=== PATIENT | female | born 1950 | race Caucasian/White ===

== ENCOUNTER 2016-07-09 09:14 | Emergency (ER) | payer BC ==
--- NOTE | 2016-07-09 10:07 | RAD ---
INDICATION: Post RIGHT knee meniscus repair April 22, 2016. RIGHT calf swelling and tightness. COMPARISON: None. TECHNIQUE: English scale, color Doppler, and spectral analysis of the deep veins of the RIGHT lower extremity. Vessel compression, phasicity, and augmentation assessed. REPORT: The RIGHT common femoral, great saphenous, profunda femoral, femoral, and popliteal veins are patent. While assessment of the calf posterior tibial and peroneal veins is limited due to soft tissue edema they appear grossly patent. Patency of the contralateral common femoral vein documented. IMPRESSION: No evidence for RIGHT lower extremity deep venous thrombosis.
[2016-07-09 11:05] VITALS: BP 182/112
[2016-07-09 19:34] LABS: BUN/Creatinine Ratio 24.7 (8-20); Calcium 9.7 mg/dL (8.6-10.3); EGFR African American 95.9 (>60); EGFR Non-African American 74.5 (>60); Potassium 3.5 mmol/L (3.5-5.0)
--- NOTE | 2016-08-02 07:34 | UC ---
Saturnino Torres Adam, scribed for Mattie Zamora DO on 07/09/16 at 0923 . Lower Extremity/Ankle HPI - HPI Summary HPI Summary: Pt is a 66 year old female presenting with right calf swelling after a recent surgery. She had arthroscopic knee surgery on 04/22 and has had no complications until now. She states that she suddenly began to have swelling and soreness in her right calf on 07/04. She had been sitting down and when she stood up she thought she had a cramp but the pain has not gone away. The pain is aggravated by standing, bending, and ambulating. This morning the pain suddenly grew worse after she heard a crack in her right leg while she was walking. The swelling did not grow worse; it has remained constant. She called an orthopedist and was advised to come here. She denies fever, chills, CP, SOB, sore throat, ear ache, eye discharge, and rash. No PMHx. No FMHx. - History of Current Complaint Stated Complaint: CALF OF LEG SWOLLEN Hx Obtained From: Patient Onset/Duration: Gradual Onset, Lasting Days, Still Present Severity Initially: Mild Severity Currently: Moderate Aggravating Factor(s): Standing, Ambulation Alleviating Factor(s): Rest Able to Bear Weight: Yes - Allergies/Home Medications Allergies/Adverse Reactions: Allergies Allergy/AdvReac Type Severity Reaction Status Date / Time No Known Allergies Allergy Verified 07/27/16 13:11 Home Medications: Home Medications Multiple Vitamins W/ Minerals [Multivitamin Gummies Wome] 1 chw PO DAILY [History Confirmed 07/27/16] PMH/Surg Hx/FS Hx/Imm Hx Previously Healthy: Yes Endocrine History Of: Denies: Diabetes, Thyroid Disease Cardiovascular History Of: Denies: Cardiac Disorders, Hypertension, Pacemaker/ICD Respiratory History Of: Denies: COPD, Asthma GI/ History Of: Denies: Ulcer, Renal Disease - Surgical History Surgical History: None - Family History Known Family History: Positive: None Negative: Cardiac Disease, Hypertension, Diabetes - Social History Occupation: Employed Full-time Lives: With Family - Alcohol Use: None Substance Use Type: None Smoking Status (MU): Never Smoked Tobacco Review of Systems Constitutional: Negative Skin: Negative Eyes: Negative ENT: Negative Respiratory: Negative Cardiovascular: Negative Gastrointestinal: Negative Genitourinary: Negative Motor: Negative Neurovascular: Negative Musculoskeletal: Edema - Right calf, Myalgia - Right calf Neurological: Negative Psychological: Negative All Other Systems Reviewed And Are Negative: Yes Physical Exam Triage Information Reviewed: Yes Appearance: Well-Appearing, No Pain Distress, Well-Nourished Vital Signs: Initial Vital Signs Temp 98.3 F 07/09/16 09:23 Pulse 110 07/09/16 09:23 Resp 18 07/09/16 09:23 BP 200/100 07/09/16 09:23 Pulse Ox 98 07/09/16 09:23 Eyes: Positive: Conjunctiva Clear. Negative: Discharge ENT: Positive: Hearing grossly normal. Negative: Muffled/hoarse voice Neck: Positive: Supple, Nontender Respiratory: Positive: Lungs clear, Normal breath sounds, No respiratory distress, No accessory muscle use Cardiovascular: Positive: RRR, No Murmur Abdomen Description: Positive: Nontender, Soft. Negative: Distended, Guarding Bowel Sounds: Positive: Present Musculoskeletal: Positive: Strength Intact, ROM Intact, Edema @, Other: - Asymmetrical swelling of right lower extremity. Calf tenderness. Positive Homans ' sign. Good pulses bilaterally. Capillary refill is good. Neurological: Positive: Alert, Muscle Tone Normal Psychological Exam: Normal Psychological: Positive: Age Appropriate Behavior Skin: Positive: Other - Warm, dry, normal color Diagnostics - Laboratory Diagnostic Studies Completed/Ordered: Venous Doppler Study - IMPRESSION: NO EVIDENCE FOR RIGHT LOWER EXTREMITY DEEP VEIN THROMBOSIS. BP: 200/100 at 09: 23. 182/112 at 11:03. - EKG Cardiac Rate: NL - 93 BPM @ 11:23 Cardiac Rhythm: Sinus: Normal ST Segment: Normal - No ST changes Lower Extremity Course/Dx - Course Course Of Treatment: Patient chooses to sign out AMA. (11:58) - Differential Dx/Diagnosis Differential Diagnosis/HQI/PQRI: Cellulitis, DVT, Infection, Sprain Provider Diagnoses: htn crisis, hematuria, lower ext edema - Physician Notifications Discussed Patient Care With: Dr. Carvalho at [facility] [place] ED at 11:13. Discharge - Discharge Plan Condition: Guarded Disposition: AGAINST MEDICAL ADVICE Referrals: No Primary Care Phys,NOPCP [Primary Care Provider] - The documentation as recorded by the Saturnino partida Adam accurately reflects the service I personally performed and the decisions made by , Mattie Zamora DO.
== END 2016-07-09 12:13 | disposition left against medical advice (07) ==
LOC: UCEAST 09:14
DX: M25.48 Effusion, other site (principal); Z53.21 Procedure and treatment not carried out due to patient leaving prior to being seen by health care provider
CPT/HCPCS: 36415; 80048; 81002; 87086; 93005; 99212; G0463

== ENCOUNTER 2016-08-03 05:58 | Day surgery (SDC) | payer BC ==
--- NOTE | 2016-07-30 22:39 | HP ---
ADMITTING HISTORY AND PHYSICAL: DATE OF ADMISSION: 08/03/16 AGE: 65 years, female. ADMITTING DIAGNOSIS: Left renal calculus. PLANNED PROCEDURES: Shockwave lithotripsy of left renal calculus. SURGEON: Dr Green. HISTORY OF PRESENT ILLNESS: Gabrielle Strauss is a 65-year-old lady who had undergone evaluation and was noted to have a 1 cm calculus in the left kidney. She desires treatment of the same and is now being brought in for shockwave lithotripsy. PAST MEDICAL HISTORY: Significant for: 1. Hypertension. 2. Recent episode of bronchitis in June. MEDICATIONS: On admission, lisinopril 5 mg daily. ALLERGIES: No known drug allergies. PHYSICAL EXAMINATION GENERAL: Reveals a pleasant middle-aged lady. VITAL SIGNS: Blood pressure is 148/90, pulse 83 per minute, temperature 96.4, oxygen saturation 97% on room air. CARDIOVASCULAR: Regular rate and rhythm. S1, S2. LUNGS: Clear bilaterally. ABDOMEN: Soft without masses. IMPRESSION: A 65-year-old lady with a 1 cm calculus in the left kidney. Planned procedure is shockwave lithotripsy of left renal calculus. I have discussed the procedure in detail including possible risk of bleeding, infection , and complete fragmentation and she appears to understand and wishes to proceed as planned. CC: Dr. Garcia; Dr. Green* [id number]/[facility] #: [id number] MTDD
[2016-08-03] MEDS ORDERED: Famotidine IV* 10 MG/ML 2 ML (20 mg) IV ONE (06:00)
[2016-08-03] MEDS ORDERED: Metoclopramide TAB* 10 MG PO ONE (06:00)
[2016-08-03] MEDS ORDERED: Buffered Lidocaine 1% SYR 3ML* 3 ML/SYR SYRINGE INTRADERM ONE (06:00)
[2016-08-03] MEDS ORDERED: Famotidine IV* 10 MG/ML 2 ML (20 mg) ONE (06:35)
[2016-08-03] MEDS ORDERED: cefTRIAXone(*) 2 GM ADDV.VIAL IVPB ONE (06:35)
[2016-08-03] MEDS ORDERED: Metoclopramide TAB* 10 MG ONE (06:35)
[2016-08-03] MEDS ORDERED: Midazolam* 1 MG/ML 5 ML VIAL (5 MG) ONE (07:13)
[2016-08-03] MEDS ORDERED: Lidocaine 2% PF * 5 ML VIAL ONE (07:13)
[2016-08-03] MEDS ORDERED: Ondansetron INJ* 2 MG/ML VIAL ONE (07:13)
[2016-08-03] MEDS ORDERED: KETAMINE HCL* 50 MG/ML 10 ML VIAL ONE (07:13)
[2016-08-03] MEDS ORDERED: Propofol* 10 MG/ML 20 ML BTL IV PUSH ONE ×2 (07:13→08:28)
[2016-08-03] MEDS ORDERED: fentaNYL* 50 MCG/ML 2 ML VIAL (100 MCG VIAL) ONE (07:13)
[2016-08-03] MEDS ORDERED: Ketorolac INJ* 30 MG/ML 1 ML VIAL ONE (07:13)
[2016-08-03] MEDS ORDERED: Dexamethasone IV* 4 MG/ML 1 ML (4 MG) ONE (07:13)
[2016-08-03] MEDS ORDERED: fentaNYL* 50 MCG/ML 2 ML VIAL (100 MCG VIAL) IV PRN (08:15)
[2016-08-03] MEDS ORDERED: Ondansetron INJ* 2 MG/ML VIAL IV PRN (08:15)
[2016-08-03] MEDS ORDERED: HYDROmorphone INJ* 1 MG/ML CARPUJECT SYRINGE IV PRN (08:15)
--- NOTE | 2016-08-03 08:20 | RAD ---
INDICATION: Left renal calculus COMPARISON: February 24, 2016 TECHNIQUE: A single view of the abdomen is submitted. FINDINGS: Bones: There are no acute bony findings. Soft tissues: The soft tissues appear normal. The psoas margins are sharp. Bowel gas pattern: Normal Calcifications: There is an 8 mm left renal calculus unchanged in position. There are no other definitive calculi identified on today's examination. Other: None IMPRESSION: LEFT RENAL CALCULUS, UNCHANGED.
[2016-08-03 09:38] VITALS: BP 162/86
--- NOTE | 2016-08-04 01:24 | OP ---
DATE OF OPERATION: 08/03/16 - [facility] DATE OF : 46 SURGEON: Flo Green MD ANESTHESIOLOGIST: Dr. Diego. ANESTHESIA: General. PRE-OP DIAGNOSIS: Left renal calculus. POST-OP DIAGNOSIS: Left renal calculus. OPERATIVE PROCEDURE: Shock wave lithotripsy of left renal calculus. INDICATIONS: Gabrielle Strauss is a 66-year-old lady who was noted to have an approximately 9- to 10-mm calculus in the left kidney. She desires treatment of the same. COMPLICATIONS: None. POSTOPERATIVE CONDITION: Stable. DESCRIPTION OF PROCEDURE: After induction of general anesthesia, the patient was placed on the lithotripsy table in the supine position. The calculus in the mid to lower pole was identified using fluoroscopy. Shock wave lithotripsy was commenced at a rate of 90 shocks per minute. After the initial 300 shocks, there was pause in lithotripsy for several minutes in an effort to minimize any potential trauma to the kidney. Shock wave lithotripsy was then resumed and a total of 2000 shocks were administered with good fragmentation observed. The patient tolerated the procedure satisfactorily and was transferred back to the recovery area in stable condition. CC: Dr. Garcia; Dr. Flo Green * [id number]/[facility] #: [id number] [facility]
== END 2016-08-03 09:45 | disposition home or self-care (01) ==
LOC: OR 05:58
PROVIDERS: ATTEND Urology
DX: N20.0 Calculus of kidney (principal); I10 Essential (primary) hypertension
CPT/HCPCS: 74000; A9270-GY; J0696; J1100; J1885; J2250; J2405; J2704; J3010

== ENCOUNTER 2019-08-01 19:23 | Emergency (ER) | payer BC ==
[2019-08-01 21:38] VITALS: BP 150/99
--- NOTE | 2019-08-01 22:24 | ED ---
Back Pain - HPI Summary HPI Summary: Patient complains of pain to right shoulder blade starting this morning. Denies trauma. Ibuprofen taken at 1600 with no relief. Denies any other pain, injury or symptoms. Medical history is none. - History of Current Complaint Chief Complaint: [place] Stated Complaint: RT SHOULDER PAIN PER PT Time Seen by Provider: 08/01/19 22:22 Hx Obtained From: Patient Onset/Duration: Sudden Onset, Lasting Hours Onset/Duration: Started Hours Ago Timing: Constant Severity Initially: Moderate Severity Currently: Moderate Pain Intensity: 7 Pain Scale Used: 0-10 Numeric Character: Aching, Throbbing Aggravating Symptom(s): Movement Alleviating Symptom(s): Position Associated Signs And Symptoms: Positive: Negative - Allergies/Home Medications Allergies/Adverse Reactions: Allergies Allergy/AdvReac Type Severity Reaction Status Date / Time No Known Allergies Allergy Verified 08/03/16 06:46 Home Medications: Home Medications Multivit-Minerals/Folic Acid [Multivitamin Gummies Wome] 1 chw PO DAILY [History Confirmed 08/03/16] Lisinopril TAB* [Prinivil TAB*] 5 mg PO DAILY 07/27/16 [History Confirmed ] Cyclobenzaprine TAB* [Flexeril 10 MG TAB*] 10 mg PO TID PRN 4 Days #12 tab 07/31 [Rx] Diazepam TAB(*) [Valium TAB(*)] 5 mg PO TID PRN 2 Days #6 tab MDD 3 tabs [Rx] PMH/Surg Hx/FS Hx/Imm Hx Endocrine/Hematology History: Denies: Hx Diabetes, Hx Thyroid Disease Cardiovascular History: Denies: Hx Hypertension, Hx Pacemaker/ICD Respiratory History: Denies: Hx Asthma, Hx Chronic Obstructive Pulmonary Disease (COPD) GI History: Denies: Hx Ulcer History: Reports: Hx Kidney Stones - LEFT, NO PREVIOUS HISTORY Denies: Hx Dialysis, Hx Renal Disease Musculoskeletal History: Reports: Hx Arthritis - RIGHT KNEE, HAD SURGERY 03/2016 Sensory History: Reports: Hx Contacts or Glasses - GLASSES Denies: Hx Hearing Aid Opthamlomology History: Reports: Hx Contacts or Glasses - GLASSES EENT History: Denies: Hx Deafness Psychiatric History: Denies: Hx Panic Disorder - Surgical History Surgery Procedure, Year, and Place: arthroscopic rt knee surgery Hx Anesthesia Reactions: No Infectious Disease History: No Infectious Disease History: Denies: Hx Clostridium Difficile, Hx Hepatitis, Hx Human Immunodeficiency Virus (HIV), Hx of Known/Suspected MRSA, Hx Shingles, Hx Tuberculosis, Traveled Outside the [place] in Last 30 Days - Family History Known Family History: Positive: Non-Contributory - Social History Alcohol Use: None Substance Use Type: Reports: None Smoking Status (MU): Never Smoked Tobacco Have You Smoked in the Last Year: No Review of Systems Constitutional: Negative Eyes: Negative ENT: Negative Cardiovascular: Negative Respiratory: Negative Gastrointestinal: Negative Genitourinary: Negative Musculoskeletal: Other Skin: Negative Neurological/Mental Status: Negative Psychological: Normal All Other Systems Reviewed And Are Negative: Yes Physical Exam - Summary Physical Exam Summary: Full range of motion of right upper extremity without pain. No pain with palpation of right shoulder. Tenderness to palpation along right paraspinal muscles of thoracic spine. PMS intact distally right upper extremity. No bony point tenderness. No ecchymosis, erythema, deformity, swelling, mass noted to back. Full range of motion of neck. Triage Information Reviewed: Yes Vital Signs On Initial Exam: Initial Vitals Temp Pulse Resp BP Pulse Ox 97.7 F 100 20 174/86 95 08/01/19 19:30 08/01/19 19:30 08/01/19 19:30 08/01/19 19:30 08/01/19 19:30 Vital Signs Reviewed: Yes Appearance: Positive: Well-Appearing Skin: Positive: Warm Head/Face: Positive: Normal Head/Face Inspection Eyes: Positive: Normal ENT: Positive: Normal ENT inspection Neck: Positive: Supple Respiratory/Lung Sounds: Positive: Clear to Auscultation Cardiovascular: Positive: Normal Abdomen Description: Positive: Nontender Musculoskeletal: Positive: Normal Neurological: Positive: Normal Psychiatric: Positive: Normal AVPU Assessment: Alert - Una Coma Scale Best Eye Response: 4 - Spontaneous Best Motor Response: 6 - Obeys Commands Best Verbal Response: 5 - Oriented Coma Scale Total: 15 Procedures - Sedation Patient Received Moderate/Deep Sedation with Procedure: No Diagnostics - Vital Signs Vital Signs Temp Pulse Resp BP Pulse Ox 08/01/19 21:35 97.8 F 92 18 150/99 97 08/01/19 19:30 97.7 F 100 20 174/86 95 - Laboratory Lab Statement: Any lab studies that have been ordered have been reviewed, and results considered in the medical decision making process. Back Pain Course/Dx - Course Course Of Treatment: Patient complains of pain to right shoulder blade starting this morning. Denies trauma. Ibuprofen taken at 1600 with no relief. Denies any other pain, injury or symptoms. Medical history is none. Vital signs within normal limits. X-ray right shoulder negative. - Diagnoses Provider Diagnoses: Muscle spasm of back Discharge ED - Sign-Out/Discharge Documenting (check all that apply): Patient Departure - Discharge Plan Condition: Stable Disposition: HOME Prescriptions: Cyclobenzaprine TAB* [Flexeril 10 MG TAB*] 10 mg PO TID PRN 4 Days #12 tab PRN Reason: Spasms Diazepam TAB(*) [Valium TAB(*)] 5 mg PO TID PRN 2 Days #6 tab MDD 3 tabs PRN Reason: Spasms Patient Education Materials: Muscle Spasm (ED) Forms: *Work Release Referrals: Olya Garcia MD [Primary Care Provider] - Additional Instructions: Alternate ibuprofen 600 mg with Tylenol 650 mg every 3 hours for back pain as needed. Take Flexeril as directed during the day for back spasm. Switch to Valium at night as directed for back spasm. Be aware that you should not drive or operate machinery while taking Valium. Return to the ED for any new or worsening symptoms. - Billing Disposition and Condition Condition: STABLE Disposition: Home
[2019-08-01] MEDS ORDERED: Ketorolac INJ* 30 MG/ML 1 ML VIAL IM ONE (23:10)
[2019-08-01] MEDS ORDERED: Diazepam TAB(*) 5 MG PO ONE (23:10)
== END 2019-08-02 00:03 | disposition home or self-care (01) ==
LOC: ED 19:23
DX: M62.830 Muscle spasm of back (principal); M25.511 Pain in right shoulder; M85.811 Other specified disorders of bone density and structure, right shoulder; M19.011 Primary osteoarthritis, right shoulder
CPT/HCPCS: 96372; 99283; J1885